=== PATIENT | female | born 2000 | race Caucasian/White ===

== ENCOUNTER 2023-11-03 10:07 | Outpatient (CLI) | payer BC, SELFPAY | END 2023-11-03 10:08 | disposition home or self-care (01) | PROVIDERS: PCP Family Medicine; Visit Provider Nurse Practitioner Family | DX: R10.9 Unspecified abdominal pain (principal) | CPT/HCPCS: 80053; 82150; 83690; 87086 ==

== ENCOUNTER 2024-08-25 15:18 | Emergency (ER) | payer BC, SELFPAY ==
[2024-08-25] VITALS (22 sets, daily range): BP systolic 80–124; BP diastolic 51–92; PULSE 69–106; RESP 16; TEMP 36.8; O2SAT 94–100; BMI 45.4
--- NOTE | 2024-08-25 16:08 | ED_ITS ---
HPI - Syncope General Time Seen by Provider: 16:08 Date Seen: 08/25/24 Chief Complaint: Syncope/Fainted Stated Complaint: 2 months /passed out at work Time Seen by Provider: 08/25/24 16:07 Source: patient and RN notes reviewed Mode of arrival: ambulatory Limitations: no limitations History of Present Illness HPI narrative: This very pleasant 23-year-old female is here about 8 weeks with syncopal episode earlier today. She had 1 prior 2 weeks ago. She has had significant morning sickness, nausea and vomiting all day. Really can only take in water consistently. She has her 1st OB appointment next week. She was at work, started to feel hot, got lightheaded, felt numb and tingly, noted spots in her vision, hearing went and she actually passed out. She did not hit her head, nothing hurts. EMS did come but she declined transfer. She decided to come in later. Two weeks ago she had another syncopal episode, did hit her head than but has no ongoing symptoms from that, no headaches, no head pain. She had 1 EAB about 5 years ago, remembers that she was sick for about the 1st 2 months of that before she had the procedure. She has not been sick with anything. She does have anxiety, will feel short of breath with that at times. She Has no palpitations, no chest pain. She notes no vaginal bleeding, spotting, no vaginal discharge. She does note her urine looks cloudy but is not dark, no dysuria. She states she has actually lost 12 lb this early . Has no nausea meds at home. Related Data Previous Rx's ?Medication ?Instructions ?Recorded ibuprofen 800 mg tablet 800 mg PO TID #30 tabs 12/19 Allergies Allergy/AdvReac Type Severity Reaction Status Date / Time No Known Drug Allergies Allergy Verified 08/25/24 15:22 Review of Systems Status of ROS: Reports: 6 or more systems reviewed and unremarkable except as noted in History and below [facility] Surgical History History of tonsillectomy and adenoidectomy (2007) ?Z90.89 - Acquired absence of other organs (ICD-10) Family History Mother Depression Antiphospholipid antibody syndrome Sister Depression Alcohol dependence Social History Narrative: Single lives with significant other, unemployed, no kids Smokes 1 pack a day for 3 years Rare alcohol use Daily marijuana use Sedentary lifestyle Smoking Status: Current every day smoker What tobacco products do you use: cigarettes Smoking packs per day: 0.5 Smoking cigarettes per day: 10.0 How often do you have a drink containing alcohol: never AUDIT-C Alcohol total score: 0 Non-prescribed substance use: marijuana (any form) Exam Const: Vital Signs, click to edit/add: Vital Signs - 24 hr 08/25/24 15:24 08/25/24 15:36 08/25/24 15:38 Temperature 98.3 F Pulse Rate 91 90 Pulse Rate [Pulse Oximeter] 99 Pulse Rate [orthos tatic lying] Pulse Rate [orthos tatic sitting] Pulse Rate [orthos tatic standing] Respiratory Rate 16 Blood Pressure 110/63 Blood Pressure [Ri ght Upper Arm] 116/77 Blood Pressure [or thostatic lying] Blood Pressure [or thostatic sitting] Blood Pressure [or thostatic standing ] Pulse Oximetry 98 98 99 Oxygen Delivery Me thod Room Air 08/25/24 15:45 08/25/24 16:00 08/25/24 16:02 Temperature Pulse Rate 91 94 90 Pulse Rate [Pulse Oximeter] Pulse Rate [orthos tatic lying] Pulse Rate [orthos tatic sitting] Pulse Rate [orthos tatic standing] Respiratory Rate Blood Pressure 111/55 L Blood Pressure [Ri ght Upper Arm] Blood Pressure [or thostatic lying] Blood Pressure [or thostatic sitting] Blood Pressure [or thostatic standing ] Pulse Oximetry 96 99 99 Oxygen Delivery Me thod 08/25/24 16:15 08/25/24 16:22 08/25/24 16:25 Temperature Pulse Rate 91 80 Pulse Rate [Pulse Oximeter] Pulse Rate [orthos tatic lying] 79 Pulse Rate [orthos tatic sitting] 99 Pulse Rate [orthos tatic standing] 94 Respiratory Rate Blood Pressure 116/61 Blood Pressure [Ri ght Upper Arm] Blood Pressure [or thostatic lying] 120/54 L Blood Pressure [or thostatic sitting] 116/61 Blood Pressure [or thostatic standing ] 124/69 Pulse Oximetry 97 98 Oxygen Delivery Me thod 08/25/24 16:25 08/25/24 16:26 08/25/24 16:30 Temperature Pulse Rate 106 H 99 77 Pulse Rate [Pulse Oximeter] Pulse Rate [orthos tatic lying] Pulse Rate [orthos tatic sitting] Pulse Rate [orthos tatic standing] Respiratory Rate Blood Pressure 120/54 L 124/69 Blood Pressure [Ri ght Upper Arm] Blood Pressure [or thostatic lying] Blood Pressure [or thostatic sitting] Blood Pressure [or thostatic standing ] Pulse Oximetry 97 94 99 Oxygen Delivery Co thod 08/25/24 16:32 08/25/24 16:33 08/25/24 17:28 Temperature Pulse Rate 79 73 76 Pulse Rate [Pulse Oximeter] Pulse Rate [orthos tatic lying] Pulse Rate [orthos tatic sitting] Pulse Rate [orthos tatic standing] Respiratory Rate Blood Pressure 106/66 Blood Pressure [Ri ght Upper Arm] Blood Pressure [or thostatic lying] Blood Pressure [or thostatic sitting] Blood Pressure [or thostatic standing ] Pulse Oximetry 99 100 99 Oxygen Delivery Co thod 08/25/24 17:29 08/25/24 17:30 08/25/24 17:32 Temperature Pulse Rate 77 69 73 Pulse Rate [Pulse Oximeter] Pulse Rate [orthos tatic lying] Pulse Rate [orthos tatic sitting] Pulse Rate [orthos tatic standing] Respiratory Rate Blood Pressure 119/92 H 121/61 Blood Pressure [Ri ght Upper Arm] Blood Pressure [or thostatic lying] Blood Pressure [or thostatic sitting] Blood Pressure [or thostatic standing ] Pulse Oximetry 98 98 99 Oxygen Delivery Co thod 08/25/24 17:45 08/25/24 18:00 08/25/24 18:02 Temperature Pulse Rate 82 78 76 Pulse Rate [Pulse Oximeter] Pulse Rate [orthos tatic lying] Pulse Rate [orthos tatic sitting] Pulse Rate [orthos tatic standing] Respiratory Rate Blood Pressure 80/51 L Blood Pressure [Ri ght Upper Arm] Blood Pressure [or thostatic lying] Blood Pressure [or thostatic sitting] Blood Pressure [or thostatic standing ] Pulse Oximetry 100 100 100 Oxygen Delivery Co thod 08/25/24 18:15 08/25/24 18:16 Temperature Pulse Rate 74 75 Pulse Rate [Pulse Oximeter] Pulse Rate [orthos tatic lying] Pulse Rate [orthos tatic sitting] Pulse Rate [orthos tatic standing] Respiratory Rate Blood Pressure 112/60 Blood Pressure [Ri ght Upper Arm] Blood Pressure [or thostatic lying] Blood Pressure [or thostatic sitting] Blood Pressure [or thostatic standing ] Pulse Oximetry 100 100 Oxygen Delivery Me thod This 23-year-old female is alert, interactive, no apparent distress. Very pleasant, appears comfortable and not anxious, seen in exam room 7. Sclera clear, symmetric facial function, speech normal. Neck is supple, no adenopathy, thyromegaly masses or nodules. Lungs are clear, good air entry, no wheezing crackles, no tachypnea, no accessory muscle use. CV regular rate and rhythm, no murmur, normal S1-S2, no S3-S4. Abdomen is obese but soft, nontender, body habitus does make it difficult to assess for any masses or organomegaly but she certainly has no tenderness. No lower extremity edema, no pitting changes along the anterior tibias, no calf tenderness. Documenting provider has reviewed patient's vital signs: yes Course Course ED Course: I would like to see orthostatic vitals on this patient. This sounds like syncope complicating her early which is plagued by nausea and vomiting. Will get orthostatics, check basic labs. Will get a urinalysis on her as she could have asymptomatic bacteriuria or UTI in . She is hemodynamically stable right now, will give her L of IV fluids. Will eventually talk to OB about this patient. She does have a follow-up for her initial OB next week. Orthostatic vitals per nursing staff were normal. Laying heart rate 79 with blood pressure 120/54; sitting heart rate 84 with blood pressure 116/61; standing heart rate 84 with blood pressure 124/69. Thus, not orthostatic. Consultations Consultation #1: Did talk to OB on-call Dr. Benavidez. she and I reviewed case, does agree with sending the patient was Zofran. She want to make sure that this patient avoids excessive heat this weekend, patient was advised of this. They do have air conditioning in she does plan on staying in this weekend. We will give her Zofran from [facility] at her request, will give 10 tablets. Time: 17:21 Vital Signs Vital signs: Initial Vital Signs Temperature 98.3 F 08/25/24 15:24 Temperature Source Temporal Artery Scan 08/25/24 15:24 Pulse Rate 99 08/25/24 15:24 Respiratory Rate 16 08/25/24 15:24 Blood Pressure 116/77 08/25/24 15:24 Blood Pressure Mean 90 08/25/24 15:24 Blood Pressure Position High-Fowlers 08/25/24 15:24 Pulse Oximetry 98 08/25/24 15:24 Oxygen Delivery Method Room Air 08/25/24 15:24 Vital Signs Temperature 98.3 F 08/25/24 15:24 Pulse Rate 99 08/25/24 15:24 Respiratory Rate 16 08/25/24 15:24 Blood Pressure 116/77 08/25/24 15:24 Pulse Oximetry 98 08/25/24 15:24 Oxygen Delivery Method Room Air 08/25/24 15:24 Temperature 98.3 F 08/25/24 15:24 Pulse Rate 75 08/25/24 18:16 Respiratory Rate 16 08/25/24 15:24 Blood Pressure 112/60 08/25/24 18:15 Pulse Oximetry 100 08/25/24 18:16 Oxygen Delivery Method Room Air 08/25/24 15:24 Medications Administered Medications: Discontinued Medications Generic Name Dose Route Start Last Admin Trade Name Freq PRN Reason Stop Dose Admin Sodium Chloride 1,000 mls @ 1,000 mls/hr 08/25/24 16:18 08/25/24 18:10 0.9 % Sodium Chloride 1000 Ml IV 08/25/24 17:17 Infused .Q1H SALO Infusion MDM - Syncope Lab Data Attestation: I reviewed the patient's lab results. Labs: Lab Results 08/25/24 Range/Units 16:50 WBC 15.61 H (4.50-11.00) K/uL RBC 4.71 (4.00-5.20) m/uL Hgb 13.0 (12.0-16.0) gm/dL Hct 38.5 (33.0-51.0) % MCV 82 (80-100) fL MCH 28 (26-34) pg MCHC 34 (32-36) gm/dL RDW Coeff of Danae 13.0 (11.5-15.5) % Plt Count 339 (140-440) K/uL Neut % (Auto) 77.7 H (42.0-72.0) % Lymph % (Auto) 15.8 L (20-44) % [place] % (Auto) 6.0 (0.0-11.0) % Eos % (Auto) 0.1 (0.0-7.0) % Baso % (Auto) 0.3 (0.0-3.0) % Neut # (Auto) 12.10 H (1.7-7.0) K/uL Lymph # (Auto) 2.50 (0.90-2.90) K/uL [place] # (Auto) 0.90 (0.00-0.90) K/UL Eos # (Auto) 0.00 (0.00-0.50) K/uL Baso # (Auto) 0.00 (0.00-0.30) K/uL Abs Immat Gran (auto) 0.00 (0.00-0.30) K/uL Imm/Tot Granulo (auto) 0.1 % Sodium 133 L (135-149) mmol/L Potassium 3.9 (3.6-5.1) mmol/L Chloride 102 (96-114) mmol/L Carbon Dioxide 20 (20-32) mmol/L Anion Gap 11 (7-15) mEq/L BUN 10 (5-24) mg/dL Creatinine 0.6 (0.5-1.5) mg/dL Estimated Creat Clear 124.85 Estimated GFR 128 ml/min Glucose 97 (60-115) mg/dL Calcium 9.8 (8.4-10.6) mg/dL Total Bilirubin 1.0 (0.1-1.5) mg/dL AST 20 (12-35) U/L ALT 14 (4-35) U/L Alkaline Phosphatase 71 (40-150) U/L Total Protein 7.3 (6.0-8.3) g/dL Albumin 4.4 (3.3-5.0) g/dL Urine Color Yellow (Yellow) Urine Appearance Clear (Clear) Urine pH 7.0 (5.0-8.5) Ur Specific [place] 1.015 (1.000-1.030) Urine Protein Negative (Negative) Urine Glucose (UA) Negative (Negative) Urine Ketones Negative (Negative) Urine Blood Negative (Negative) Urine Nitrite Negative (Negative) Urine Bilirubin Negative (Negative) Urine Urobilinogen 0.2 (0.2-1.0) Ur Leukocyte Esterase Negative (Negative) Urine RBC 0-2 (0-2) Urine WBC 0-2 (0-5) Ur Squamous Epith Cells Few (None-Few) Urine Bacteria None (None) ECG Data Attestation: I personally reviewed and interpreted this ECG as follows: ( Normal sinus rhythm, 76 beats per minute. No ischemia, no infarct.) ECG interpretation date: 08/25/24 ECG interpretation time: 16:52 Discharge Plan Discharge Clinical Impression: Vasovagal syncope, Nausea and vomiting during prior to 22 weeks gestation Patient Disposition: Home, Self-Care Condition: Stable Instructions: Nausea and Vomiting in (ED) Additional Instructions: Can use the Zofran 4 mg, 1 tablet up to 3 times a day as needed for nausea or vomiting. Take frequent small sips of fluids every 5-10 minutes while awake, tried to separate solids and fluids. Please keep your follow-up in OB next week that you state you have scheduled. Try to avoid being out in the heat this weekend. If you have further concerns or issues, please seek re-evaluation. Making position changes like going from lying to standing or sitting to standing, standing for prolonged times without moving can increase the risk of vasovagal syncope in early particularly if you are dry from nausea and vomiting. It is really important that you try to increase your fluid intake for sure. Activity Level: Activity as Tolerated Prescriptions: No Action ibuprofen 800 mg tablet 800 mg PO TID Qty: 30 0RF Rx Instructions: 1 tab 3 times a day with food x 10 days Follow Up/Referrals: Femi Perez MD [Primary Care Provider, Family Practice] Stand Alone Forms: [email or web address] Info Instructions
--- OUTSIDE RECORDS SUMMARY | 2024-08-25 16:23 | XMS_ITS | Clinical Summary ---
Author Organization [facility] Address [address] [place] [address] Care Team Providers Care Merchandiser Seasonal Name Role Phone None Primary Care Provider Unavailabl e Pcp, No Unavailable Unavailable Allergies No known active allergies Medications No known medications Active Problems Problem Noted Date Diagnosed Date Overweight(278.02) Immunizations Immunization Administration Dates Next Due COVID-19 vaccine (Moderna 100mcg/0.5mL) ZHENG BYRNES 10/24/2020 Human Papilloma Virus Vaccine 11/06/2011 Influenza Virus, Unspecified 12/06/2008 Influenza, IIV3 (Age >=3 years) 01/10/2008 Meningococcal Vaccine (Menactra) 11/06/2011 Tdap 11/06/2011 Varicella Vaccine 11/06/2011 Family History Medical History Relation Name Comments Good Health Mother Relation Name Status Comments Mother Social History Tobacco Use Types Packs/Day Years Used Date Smoking Tobacco: Never Smokeless Tobacco: Never Tobacco Cessation:Counseling Given: Not Answered Alcohol Use Standard Drinks/Week Comments Never 0 (1 standard drink = 0.6 oz pur e alcohol) Social Connections Answer Date Recorded Frequency of Communication with Friends and Fami ly 0 10/30/2022 Financial Resource Strain Answer Date R ecorded Difficulty of Paying Living Expenses 3 10/30/2022 Difficulty of Paying Living Expenses Not on file 10/30/2022 Food Insecurity Answer Date Recorded Worried About Running Out of Food in the Last Ye ar 1 10/30/2022 Transportation Needs Answer Date Record ed Lack of Transportation (Medical) 1 10/30/2022 Housing Stability Answer Date Recorded Unable to Pay for Housing in the Last Year 1 10/30/2022 Comments No Sex and Gender Information Value Date Recorded Sex Assigned at Not on file Legal 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 Gender Identity Not on file Sexual Orientation Not on file Obstetrics History Last Filed Vital Signs Vital Sign Reading Time Taken Comments Blood Pressure 129/84 02/17/2022 11:01 AM ELECTRIC VEHICLE ELECTRICIAN Pulse 102 02/17/2022 11:01 AM ELECTRIC VEHICLE ELECTRICIAN Temperature 36.9 C (98.4 F) 02/17/2022 11:01 AM ELECTRIC VEHICLE ELECTRICIAN Respiratory Rate 20 02/17/2022 11:01 AM ELECTRIC VEHICLE ELECTRICIAN Oxygen Saturation 97% 02/17/2022 11:01 AM ELECTRIC VEHICLE ELECTRICIAN Inhaled Oxygen Concentration - - Weight 39.9 kg (88 lb) 05/16/2007 4:49 PM CDT Height 129.5 cm (4' 3) 05/16/2007 5:14 PM CDT Body Mass Index 23.79 05/16/2007 4:49 PM CDT Plan of Treatment Health Maintenance Due Date Last Done Comments Depression screening for age 12+ 2011 HPV series for age 9-26 (2 - 2-dose series) 05/05/2012 11/06/2011 HIV for age 15-65 09/26/2014 BMI (ht and wt on same day) for age 18+ 09/26/2017 Hepatitis C screening for ag e 18-79 09/26/2017 Hepatitis B series for 19+ ( 1 of 3 - 19+ 3-dose series) 09/26/2018 Pap test for age 21-65 09/26/2020 Tetanus booster 11/05/2021 11/06/2011 COVID-19 vaccine series ( season) 2023 10/24/2020 Influenza Vaccine (Season Ended) 2024 12/06/2008, 01/10/2008 Tdap Completed 11/06/2011 Pneumococcal series for age 6-49 Aged Out No longer eligible b ased on patient's age to complete this topic [place] [address] [place] [address] Member Subscriber Plan / Payer (Ef fective 2019-Present) Name:Maritza Maldonadominda Engel Relation to Subscriber:Self Name:Maritza Maldonadominda Engel Payer ID:[id number] (NAIC) Group ID:[id number] Type:Not on file Address: [address] [place] [address] Care Teams Merchandiser Seasonal Relationship Specialty Start Date End Date None . PCP - General 02/17/22 Pcp, No . 02/17/22
[2024-08-25 17:01] LABS: Appearance Urine Clear (Clear); Basophils Percent Auto 0.3 % (0.0-3.0); Bilirubin Urine Negative (Negative); Blood Urine Negative (Negative); Color Urine Yellow (Yellow); Eosinophils Percent Auto 0.1 % (0.0-7.0); Glucose Urine Negative (Negative); Hematocrit 38.5 % (33.0-51.0); Immature Granulocytes Pct Auto 0.1 %; Ketones Urine Negative (Negative); Leukocyte Esterase Urine Negative (Negative); Lymphocytes Percent Auto 15.8 % (20-44); Mean Corpuscular HGB Conc 34 gm/dL (32-36); Mean Corpuscular Hemoglobin 28 pg (26-34); Mean Corpuscular Volume 82 fL (80-100); Neutrophils Percent Auto 77.7 % (42.0-72.0); Nitrite Urine Negative (Negative); Platelet Count* 339 K/uL (140-440); Protein Urine Negative (Negative); Red Blood Count 4.71 m/uL (4.00-5.20); Slide Review Reflex No; Specific Gravity Urine 1.015 (1.000-1.030); Urobilinogen Urine 0.2 (0.2-1.0); White Blood Count* 15.61 K/uL (4.50-11.00)
[2024-08-25 17:13] LABS: RBC Urine 0-2 (0-2); Squamous Epithelial Cell Urine Few (None-Few); WBC Urine 0-2 (0-5)
[2024-08-25 17:15] LABS: Chloride* 102 mmol/L (96-114)
[2024-08-25 17:16] LABS: Albumin* 4.4 g/dL (3.3-5.0); Potassium* 3.9 mmol/L (3.6-5.1); Sodium* 133 mmol/L (135-149)
[2024-08-25 17:18] LABS: Alanine Aminotransferase* 14 U/L (4-35); Alkaline Phosphatase* 71 U/L (40-150); Anion Gap 11 mEq/L (7-15); Aspartate Amino Transferase* 20 U/L (12-35); Blood Urea Nitrogen* 10 mg/dL (5-24); Carbon Dioxide* 20 mmol/L (20-32); Creatinine* 0.6 mg/dL (0.5-1.5); Est. Creatinine Clearance* 124.85; Estimated Glomerular Filt Rate 128 ml/min; Total Protein* 7.3 g/dL (6.0-8.3)
[2024-08-25 17:19] LABS: Calcium* 9.8 mg/dL (8.4-10.6); Glucose* 97 mg/dL (60-115)
[2024-08-25] MEDS: 0.9 % SODIUM CHLORIDE 1000 ml 1,000 ML IV (17:25)
== END 2024-08-25 18:38 | disposition home or self-care (01) ==
PROVIDERS: Emergency Provider Family Medicine; PCP Family Medicine
DX: R55 Syncope and collapse (principal); O21.9 Vomiting of pregnancy, unspecified; Z3A.08 8 weeks gestation of pregnancy
CPT/HCPCS: 36415; 80053; 81001; 82962; 85025; 93005; 94761; 99284; J7030

== ENCOUNTER 2024-08-29 14:56 | Outpatient (CLI) | payer BC, SELFPAY ==
--- NOTE | 2024-08-29 15:00 | CRLHL7_ITS ---
For Patients: As a result of the Cures Act, medical imaging exams and procedure reports are released immediately into your electronic medical record. You may view this report before your referring provider. If you have questions, please contact your health care provider. OB ULTRASOUND INDICATION: Dating and viability. TECHNIQUE: Real time grayscale imaging of the fetus was performed. Transvaginal. LMP: 06/28/2024. ABDIAS by LMP: 04/04/2025. GA: 8 w, 6 d. Previous US: No. CRL: 2.4 cm. 9 w 0 d. ABDIAS: 04/03/2025. FHR: 173 BPM. Gestational sac: 3.7 cm. Appears within normal limits. Yolk sac: 4.3 mm. Appears within normal limits. Right ovary: 3.1 x 1.5 x 2.0 cm. Left ovary: 3.2 x 2.0 x 2.4 cm. CL. IMPRESSION: Single living intrauterine measuring 9 weeks 0 days and sonographic due date 04/03/2025. Magdaleno Interiano M.D. Diagnostic Radiologist [email or web address] TABBY/jovan aldana/Dictated by: Magdaleno Interiano MD @ 08/29/2024 4:35:00 PM (Electronically Signed)
--- OUTSIDE RECORDS SUMMARY | 2024-08-30 01:00 | XMS_ITS | Clinical Summary ---
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 Gender Identity Not on file Sexual Orientation Not on file Obstetrics History Last Filed Vital Signs Vital Sign Reading Time Taken Comments Blood Pressure 129/84 02/17/2022 11:01 AM ASSISTANT PROFESSOR OF THEATER Pulse 102 02/17/2022 11:01 AM ASSISTANT PROFESSOR OF THEATER Temperature 36.9 C (98.4 F) 02/17/2022 11:01 AM ASSISTANT PROFESSOR OF THEATER Respiratory Rate 20 02/17/2022 11:01 AM ASSISTANT PROFESSOR OF THEATER Oxygen Saturation 97% 02/17/2022 11:01 AM ASSISTANT PROFESSOR OF THEATER Inhaled Oxygen Concentration - - Weight 39.9 [...] patient's age to complete this topic [place] [address] [address] Care Teams Carpet Journeyman Relationship Specialty Start Date End Date None . PCP - General 02/17/22 Pcp, No . 02/17/22
== END 2024-08-29 14:57 | disposition home or self-care (01) ==
LOC: US 14:57
PROVIDERS: PCP Family Medicine; Visit Provider Registered Nurse
DX: Z34.91 Encounter for supervision of normal pregnancy, unspecified, first trimester (principal); Z3A.09 9 weeks gestation of pregnancy; Z12.4 Encounter for screening for malignant neoplasm of cervix
CPT/HCPCS: 76817; 80306; 83021; 86592; 86703; 86704; 86706; 86762; 86787; 86803; 86850; 86900; 86901; 87086; 87340; 87491; 87591; 88142

== ENCOUNTER 2024-08-29 16:10 | Outpatient (CLI) | payer BC, SELFPAY ==
[2024-08-29 21:40] LABS: Chlamydia DNA Amplified* NOT DETECTED (No Detected); GC DNA Amplified* NOT DETECTED (No Detected)
== END 2024-08-29 16:11 | disposition home or self-care (01) ==
PROVIDERS: PCP Family Medicine; Visit Provider Registered Nurse
DX: Z12.4 Encounter for screening for malignant neoplasm of cervix; Z34.91 Encounter for supervision of normal pregnancy, unspecified, first trimester; Z3A.09 9 weeks gestation of pregnancy
CPT/HCPCS: 80306; 83020; 83021; 85660; 86592; 86703; 86704; 86706; 86762; 86787; 86803; 86850; 86900; 86901; 87086; 87340; 87491; 87591; 87624; 87625; 88141; 88142

== ENCOUNTER 2024-10-23 15:06 | Outpatient (CLI) | payer MEDICAID, SELFPAY ==
[2024-10-23 19:46] LABS: Cannabinoid Screen Urine POSITIVE (Negative); Methamphetamines Screen Urine Negative (Negative); Tricyclic Antidepressant Urine Negative (Negative)
== END 2024-10-23 15:07 | disposition home or self-care (01) ==
PROVIDERS: PCP Family Medicine; Visit Provider Obstetrics & Gynecology
DX: F12.90 Cannabis use, unspecified, uncomplicated (principal)
CPT/HCPCS: 80306

== ENCOUNTER 2024-11-15 09:11 | Outpatient (CLI) | payer BC, SELFPAY | END 2024-11-15 09:12 | disposition home or self-care (01) | LOC: US 09:11 | PROVIDERS: PCP Family Medicine; Visit Provider Obstetrics & Gynecology | DX: O99.212 Obesity complicating pregnancy, second trimester (principal); Z3A.20 20 weeks gestation of pregnancy | CPT/HCPCS: 76811 ==

== ENCOUNTER 2024-12-06 11:46 | Outpatient (CLI) | payer BC, SELFPAY | END 2024-12-06 11:47 | disposition home or self-care (01) | LOC: US 11:47 | PROVIDERS: PCP Family Medicine; Visit Provider Obstetrics & Gynecology | DX: Z36.2 Encounter for other antenatal screening follow-up (principal); Z3A.23 23 weeks gestation of pregnancy | CPT/HCPCS: 76816 ==

== ENCOUNTER 2025-01-11 12:50 | Outpatient (CLI) | payer BC, SELFPAY | END 2025-01-11 12:51 | disposition home or self-care (01) | LOC: NFLDREF 01-15 04:42 | PROVIDERS: PCP Family Medicine; Referring Provider Family Medicine; Visit Provider Obstetrics & Gynecology | DX: Z34.93 Encounter for supervision of normal pregnancy, unspecified, third trimester (principal); Z3A.28 28 weeks gestation of pregnancy | CPT/HCPCS: 86592 ==

== ENCOUNTER 2025-01-11 12:52 | Outpatient (CLI) | payer BC, SELFPAY ==
--- NOTE | 2025-01-11 13:00 | CRLHL7_ITS ---
For Patients: As a result of the Cures Act, medical imaging exams and procedure reports are released immediately into your electronic medical record. You may view this report before your referring provider. If you have questions, please contact your health care provider. Indication: Obesity complicating LMP, growth ESTIMATED DATE OF DELIVERY (ABDIAS): 04/04/2025. Technique: Real-time sonographic images of the pelvis were obtained transabdominally using grayscale, color, and Doppler imaging. Comparison: 12/06/2024, 08/29/2024. Findings: Placenta: Anterior. No previa. : Number: Single. Position: Cephalic. Cardiac activity: 142 BPM. Amniotic fluid: Single deepest pocket measures 6.8 cm. GROWTH PARAMETER SIZE (cm) ESTIMATED AGE Biparietal diameter: 7.5 30 weeks 0 days Head circumference: 27.4 29 weeks 6 days Abdominal circumference: 25.1 29 weeks 2 days Femur length: 5.4 28 weeks 5 days Average Ultrasound Age (AUA) based on this exam: 29 weeks 3 days. ABDIAS based on the AUA from this exam: 03/26/2025. Estimated weight (EFW): 1352 gm +/- 203 gm. This corresponds to the 78 percentile based on the established ABDIAS. HC/AC= 1.1 FL/AC= 21.7% Impression: 1. Single live intrauterine measuring 29 weeks 3 days by ultrasound. 2. Amniotic fluid with single deepest pocket measuring 6.8 centimeter. Dictated by Dannie Parkinson MD @ 01/11/2025 5:18:42 PM (Electronically Signed)
== END 2025-01-11 12:53 | disposition home or self-care (01) ==
LOC: US 12:53
PROVIDERS: PCP Family Medicine; Visit Provider Obstetrics & Gynecology
DX: O99.213 Obesity complicating pregnancy, third trimester (principal); Z3A.29 29 weeks gestation of pregnancy; Z34.93 Encounter for supervision of normal pregnancy, unspecified, third trimester; Z3A.28 28 weeks gestation of pregnancy
CPT/HCPCS: 76816

== ENCOUNTER 2025-01-18 08:34 | Outpatient (CLI) | payer BC, SELFPAY | END 2025-01-18 08:35 | disposition home or self-care (01) | LOC: NFLDREF 01-23 21:17 | PROVIDERS: PCP Family Medicine; Referring Provider Family Medicine; Visit Provider Obstetrics & Gynecology | DX: O24.419 Gestational diabetes mellitus in pregnancy, unspecified control (principal) | CPT/HCPCS: 80306; 82951; 82952 ==

== ENCOUNTER 2025-02-08 12:15 | Outpatient (CLI) | payer BC, SELFPAY ==
--- NOTE | 2025-02-08 12:15 | CRLHL7_ITS ---
For Patients: As a result of the Century Cures Act, medical imaging exams and procedure reports are released immediately into your electronic medical record. You may view this report before your referring provider. If you have questions, please contact your health care provider. OBSTETRICAL ULTRASOUND ??? FOLLOW-UP INDICATION: Gestational diabetes mellitus, obesity. Follow-up growth. CLINICAL HISTORY: ABDIAS by LMP: 04/04/2025 Gestational Age: 32 weeks 1 day COMPARISON: 01/11/2025, 12/06/2024, 11/15/2024. TECHNIQUE: Real-time arredondo-scale transabdominal imaging of the fetus was performed. FINDINGS: Fetus: Single Cervix: Not visualized positioning: Vertex Amniotic Fluid: 7.1 cm SDP Placenta technique: Transabdominal Placenta position: Anterior heart rate: 147 bpm BIOMETRY: BPD: 8.2 cm, 33 weeks 1 day, 71.2% HC: 31.0 cm, 34 weeks 5 days, 79.3% AC: 30.4 cm, 34 weeks 3 days, 95.7% FL: 6.3 cm, 32 weeks 5 days, 53.7% FL/AC Ratio: 20.80% HC/AC ratio: 1.02 EFW: 2287 grams; 5 lbs. 1 oz. age by this ultrasound: 33 weeks 5 days ABDIAS by this ultrasound: 03/24/2025 Percentile by ABDIAS: 88.6% IMPRESSION: 1. Sonographic gestational age is 33 weeks 5 days and sonographic due date is 03/24/2025. Sonographic age is 11 days ahead of the clinical age. 2. Estimated weight is 89th percentile. Abdominal circumference is 96th percentile. MAGDALENO CHAND M.D. Diagnostic Radiologist [email or web address] Transcribed: 4:[address]/Dictated by: Magdaleno Chand MD @ 02/08/2025 3:39:00 PM (Electronically Signed)
== END 2025-02-08 12:16 | disposition home or self-care (01) ==
LOC: US 12:16
PROVIDERS: PCP Family Medicine; Visit Provider Obstetrics & Gynecology
DX: O24.419 Gestational diabetes mellitus in pregnancy, unspecified control (principal); O99.213 Obesity complicating pregnancy, third trimester; O36.63X0 Maternal care for excessive fetal growth, third trimester, not applicable or unspecified; Z3A.32 32 weeks gestation of pregnancy
CPT/HCPCS: 76816

== ENCOUNTER 2025-02-13 08:11 | Outpatient (CLI) | payer BC, SELFPAY ==
--- NOTE | 2025-02-13 08:15 | CRLHL7_ITS ---
For Patients: As a result of the Cures Act, medical imaging exams and procedure reports are released immediately into your electronic medical record. You may view this report before your referring provider. If you have questions, please contact your health care provider. OBSTETRICAL ULTRASOUND ??? BIOPHYSICAL PROFILE INDICATION: Gestational diabetes mellitus. Biophysical profile. CLINICAL HISTORY: ABDIAS by LMP: 04/04/2025 Gestational Age: 32 weeks 6 days COMPARISON: 02/08/2025, 01/11/2025, 12/06/2024. TECHNIQUE: Real-time arredondo-scale transabdominal imaging of the fetus was performed. FINDINGS: Fetus: Single Cervix: Not visualized positioning: Vertex Amniotic Fluid: 6.0 cm SDP BIOPHYSICAL PROFILE: Gross body movements: 2 tone: 2 Respiratory activity: 2 Amniotic fluid SDP: 2 Total score: 8 Placenta technique: Transabdominal Placenta position: Anterior heart rate: 144 bpm IMPRESSION: Normal biophysical profile score of 8/8. MAGDALENO CHAND M.D. Diagnostic Radiologist [email or web address] Transcribed: 9:[address]/Dictated by: Magdaleno Chand MD @ 02/13/2025 8:48:00 AM (Electronically Signed)
== END 2025-02-13 08:12 | disposition home or self-care (01) ==
LOC: US 08:11
PROVIDERS: PCP Family Medicine; Visit Provider Physician Assistant
DX: O24.419 Gestational diabetes mellitus in pregnancy, unspecified control (principal); Z3A.32 32 weeks gestation of pregnancy
CPT/HCPCS: 76819